=== PATIENT | male | born 1980 | race Caucasian/White ===

== ENCOUNTER 2020-05-23 06:56 | Observation (INO) | payer OTHER, SELFPAY ==
[2020-05-23] VITALS (21 sets, daily range): BP systolic 105–143; BP diastolic 65–97; PULSE 52–94; RESP 16–20; TEMP 36.6–37.1; O2SAT 95–99; BMI 28.3; BMI 27.7
--- NOTE | 2020-05-23 | IR_ITS ---
APPROVED REPORT Patient Location: Inpatient First Crusher: ANA Cisneros RT (R) PROCEDURES Left heart catheterization Left ventriculogram Selective coronary angiogram INDICATION Risk factors for coronary artery disease accompanied by unstable angina Informed consent was obtained prior to the procedure. COMPLICATIONS NONE Estimated Blood Loss: LESS THAN 10 ML TECHNIQUE One percent lidocaine used to anesthetize the right anterior aspect of the wrist. The right radial artery was accessed via the Seldinger technique. A 6 Uzbek sheath was placed in the right radial artery. 2.5 mg of verapamil, 800 mcg of nitroglycerin, 1mg Lidocaine and 5000 U Heparin were given through the arterial sheath. The trap catheter was also used to perform left heart catheterization, left ventriculogram and selective coronary angiogram. At the end of the procedure the sheath was removed good hemostasis was achieved using Traclet band, patient was transferred to the postop holding area in stable condition. ANGIOGRAPHIC RESULTS The left main artery Normal The left anterior descending artery Normal The circumflex artery Normal The right coronary artery Dominant normal The REBOLLAR ventriculogram reveals Normal 65% The left ventricular end-diastolic pressure 10 mmHg IMPRESSION Normal coronary arteries Normal ejection fraction Normal left ventricular end-diastolic pressure PLAN 1. Evaluation of noncardiac symptomatology Electronically signed by : Júnior Schmidt, 05/23/2020 11:36:58
--- NOTE | 2020-05-23 06:52 | ECG_ITS ---
APPROVED REPORT Exam: Resting ECG HR:89 bpm ECG Measurements Heart Rate 89 AXES OR 120 P 44 QRSd 106 QRS 111 QT 384 T 46 QTc 467 Conclusion Sinus rhythm with occasional premature ventricular complexes Left posterior fascicular block Abnormal ECG Electronically signed by : Kavon Browning, 05/26/2020 09:45:13
--- NOTE | 2020-05-23 07:09 | XR_ITS ---
PROCEDURE: XR CHEST PORTABLE CLINICAL HISTORY: chest pain COMPARISON: CR CXR CHEST(2 VIEWS-NOT PORTABLE) from 04/05/2017 FINDINGS: The cardiomediastinal silhouette and pulmonary vascularity are within normal limits. The lungs are clear without infiltrates, suspicious nodules, or pleural effusions. No acute bony abnormalities. IMPRESSION: No acute findings. Dictated by: Huy Francisco MD 05/23/2020 10:27 Huy Francisco MD in OV 05/23/2020 10:27
--- NOTE | 2020-05-23 07:19 | HMH.EDCP ---
ED Disposition Clinical Impression: Chest pain Qualifiers: Chest pain type: precordial pain Qualified Code(s): R07.2 - Precordial pain Disposition: Admitted as Observation Condition on Discharge: Good Referrals: Johnie Tinoco MD [Primary Care Provider] - - Critical Care Critical Care Time: No Attestation: On , the high probability of a clinically significant, sudden or life threatening deterioration of the following system(s) required my full and direct attention, intervention and personal management. The time I documented below is in addition to time spent performing reported procedures but includes the following listed in this critical care notation. Medical Decision Making - Medical Records Medical records reviewed: Yes: I reviewed the patient's medical records. - Adrián Inquiry Pt receiving controlled substance: No Vital Signs: 05/23/20 07:04 05/23/20 07:05 05/23/20 07:11 Temperature 98.7 F Temperature Source Oral Pulse Rate [Radial] 94 H 86 78 Respiratory Rate 18 Blood Pressure [Right Arm] 142/91 H 138/97 H 118/89 Blood Pressure Mean [Right Arm] 108 110 98 Blood Pressure Position [Right Arm] Sitting Sitting 02 Sat by Pulse Oximetry 98 Oxygen Delivery Method Room Air 05/23/20 07:18 05/23/20 07:27 05/23/20 07:35 Temperature Temperature Source Pulse Rate [Radial] 92 H 90 86 Respiratory Rate Blood Pressure [Right Arm] 123/89 130/80 112/82 Blood Pressure Mean [Right Arm] 100 96 92 Blood Pressure Position [Right Arm] Sitting Sitting Sitting 02 Sat by Pulse Oximetry Oxygen Delivery Method - Lab Data Lab results reviewed: Yes: I reviewed the patient's lab results. Lab Results 05/23/20 06:55: WBC 5.4, RBC 4.70, Hgb 15.2, Hct 45.6, MCV 97.1 H, MCH 32.4 H, MCHC 33.4, RDW 12.7, Plt Count 197, MPV 8.3, Neut % (Auto) 58.2, Lymph % (Auto) 28.7, Young % (Auto) 7.4, Eos % (Auto) 4.9, Baso % (Auto) 0.9, Neut # (Auto) 3.1, Lymph # (Auto) 1.5, Young # (Auto) 0.4, Eos # (Auto) 0.3, Baso # (Auto) 0.1 05/23/20 06:55: Sodium 140, Potassium 3.9, Chloride 98, Carbon Dioxide 31 H, Anion Gap 14.9, BUN 18, Creatinine 1.20, Estimated Creat Clear 127, Estimated GFR 67, Est GFR ( Amer) 81, Glucose 104 H, Calcium 9.5, Troponin I < 0.01 Result diagrams: 05/23/20 06:55 05/23/20 06:55 Orders (Tests/Meds): ED MEDICATIONS Discontinued Medications Generic Name Dose Route Start Last Admin Trade Name Freq PRN Reason Stop Dose Admin Aspirin 324 mg 05/23/20 06:57 05/23/20 06:58 Aspirin 81mg Chewable Tablet PO 05/23/20 06:58 324 mg ONCE ONE Administration Nitroglycerin 0.4 mg 05/23/20 06:57 05/23/20 06:58 Nitroglycerin 0.4mg Sl Tablet SL 05/23/20 06:58 0.4 mg ONCE ONE Administration Nitroglycerin 0.4 mg 05/23/20 07:18 05/23/20 07:20 Nitroglycerin 0.4mg Sl Tablet SL 05/23/20 07:19 0.4 mg ONCE ONE Administration Nitroglycerin 0.4 mg 05/23/20 07:29 05/23/20 07:30 Nitroglycerin 0.4mg Sl Tablet SL 05/23/20 07:30 0.4 mg ONCE ONE Administration ORDERS Category Date Time Status XR chest portable Stat Exams 05/23/20 07:09 Taken Covid-19 IgG/IgM ([facility]) Stat Lab 05/23/20 06:55 Received Troponin I Q3H Lab 05/23/20 10:15 Ordered Troponin I Q3H Lab 05/23/20 13:15 Ordered - Radiology Data #1 Image(s): Chest Image Reviewed: Yes I reviewed the patient's radiology image Preliminary Findings: Normal/NAD - ECG Data Tracing #1 Normal Sinus Rhythm: Yes Ischemic changes: non-specific ST-T wave changes - Physician Consults Physician Consulted: veronica Reason -: Admission Chest Pain HPI - General Chief Complaint: Chest Pain Stated Complaint: chest pain Time Seen by Provider: 05/23/20 07:10 Mode of Arrival: Ambulatory Source of Information: Patient, Spouse, Medical Record Limitations: No Limitations Description of Symptoms (Recalled from ER Triage Doc. by RN): to ed per pvt car with c/o chest heaviness radiati
[2020-05-23 07:23] LABS: Basophils # 0.1 K/mm3 (0-0.2); Basophils % 0.9 % (0.1-2.0); Chloride 98 mmol/L (98-107); Eosinophils # 0.3 K/mm3 (0.0-0.4); Eosinophils % 4.9 % (0.1-12.0); Hematocrit 45.6 % (42.0-52.0); Hemoglobin 15.2 g/dL (14.1-18.0); Lymphocytes # 1.5 K/mm3 (0.7-4.5); Lymphocytes % 28.7 % (10-50); Mean Corpuscular HGB Conc 33.4 g/dL (31.8-35.4); Mean Corpuscular Hemoglobin 32.4 pg (27.0-31.2); Mean Corpuscular Volume 97.1 fl (80-94); Mean Platelet Volume 8.3 fl (7.4-10.4); Monocytes # 0.4 K/mm3 (0.1-1.0); Monocytes % 7.4 % (1.7-9.3); Neutrophils # 3.1 K/mm3 (1.8-7.8); Neutrophils % 58.2 % (37.0-80.0); Platelet Count 197 K/mm3 (142-424); Red Cell Distribution Width 12.7 % (11.5-17.5); White Blood Count 5.4 K/mm3 (4.8-10.8)
[2020-05-23 07:24] LABS: Potassium 3.9 mmoL/L (3.5-5.1); Sodium 140 mmol/L (136-145)
[2020-05-23 07:27] LABS: Anion Gap 14.9 mEq/L (5-15); Blood Urea Nitrogen 18 mg/dl (9-20); Calcium 9.5 mg/dl (8.4-10.2); Carbon Dioxide 31 mmol/L (22.0-30.0); Creatinine Clearance Estimated 127 mL/min (50-200); Estimated Glomerular Filt Rate 67 ml/min (>60); GFR (African American) 81 ML/MIN (>60); Glucose 104 mg/dl (74-100)
[2020-05-23 07:39] LABS: Troponin I < 0.01 ng/ml (0.00-0.034)
--- NOTE | 2020-05-23 07:50 | PC.NURSE ---
Dr Nguyen spoke with Dr Tinoco
--- NOTE | 2020-05-23 07:52 | PC.NURSE ---
care management called regarding pt's admission
[2020-05-23 08:03] LABS: Coronavirus 19 IgG Antibody Positive (Negative); Coronavirus 19 IgM Antibody Negative (Negative)
--- NOTE | 2020-05-23 08:20 | CA_ITS ---
APPROVED REPORT EXAM: Comprehensive 2D, Doppler, and color-flow Echocardiogram Change Consultant: Caryl Fung RDCS Ht: 6 ft 6 in Wt: 245lbs BSA: 2.46 BP: 138/97 mmHg Indications: CP,SMOKER 2D Dimensions LVOT 1.89 cm (M/F) 1.5-2.5 M-Mode Dimensions RVDd 3.07 cm (0.9-2.6) LA Diam 3.03 cm (1.9-4.0) LVDd 5.21 cm (3.5-5.7) Ao Diam 3.71 cm (2.0-3.7) LVDs 4.00 cm (3.5-5.7) IVSd 0.81 cm (0.6-1.1) PWd 0.65 cm (0.6-1.1) EF (Teich) 46.20% FS 23.20% EDV (Teich) 130.10 mL ESV (Teich) 70.00 mL LV Diastology E Decel Time 233.00 (160-240 msec) E/A Ratio 1.1 MED E' 6.70 (< 7 cm/sec) E'/MED E' Ratio 8.90 (>14) LAT E' 11.30 (<10 cm/sec) E/LAT E' Ratio 5.27 (>14) Mitral Valve MV E Max Neo. 60.00 (40-130 cm/s) MV A Velocity 55.00 (40-130 cm/s) E/A Ratio 1.08 MV Decel. Time 233.00 (160-240 ms) MV PHT 68.00 ms Left Ventricle Left atrium is mildly enlarged, left ventricle is normal size, mild concentric left ventricular hypertrophy, visually estimated ejection fraction 55% with no regional wall motion abnormality, grade 1 diastolic dysfunction seen without tissue Doppler evidence of raise left atrial pressure. Right Ventricle Right atrium and right ventricle mildly not with normal contractility. Aortic Valve Uric valve is minimally thickened and fibrosed, there is no aortic stenosis or aortic insufficiency. Mitral Valve Mitral valve is grossly normal, there is no mitral stenosis, there is trace mitral regurgitation. Tricuspid Valve Tricuspid valve is grossly normal, there is trace tricuspid regurgitation, tricuspid regurgitation (inadequate for calculation of the right ventricular systolic pressure. Pulmonic Valve Pulmonic valve is poorly visualized. Great Vessels Aortic root is normal size. Pericardium No significant pericardial effusion noted. Conclusion 1. Mild biatrial enlargement, normal left ventricular size, mild concentric left ventricular hypertrophy, visually estimated ejection fraction 55% with no regional wall motion abnormality, grade 1 diastolic dysfunction seen without tissue Doppler evidence of raise left atrial pressure. 2. Trace mitral and mild tricuspid regurgitation. 3. No significant pericardial effusion noted. Electronically signed by : Hemanth Lockhart, 05/23/2020 14:54:59
--- NOTE | 2020-05-23 08:24 | PC.NURSE ---
report called to floor
--- NOTE | 2020-05-23 08:26 | HMH.PHAVTE ---
[facility] Pharmacy VTE Monitoring - Patient Demographics Admission date: 05/23/20 Report Date: 05/23/20 Time: 08:26 Allergies/Adverse Reactions: Patient Allergies No Known Allergies Allergy (Verified 07/11/19 12:22) Height: 1.98 m Weight: 111.13 kg Patient Problems: Current Active Problems Chest pain (Acute) - VTE Risk Labs: VTE Related Lab Results Hgb 15.2 g/dL (14.1-18.0) 05/23/20 06:55 Hct 45.6 % (42.0-52.0) 05/23/20 06:55 Plt Count 197 K/mm3 (142-424) 05/23/20 06:55 BUN 18 mg/dl (9-20) 05/23/20 06:55 Creatinine 1.20 mg/dl (0.66-1.25) 05/23/20 06:55 Estimated Creat Clear 127 mL/min (50-200) 05/23/20 06:55 - Prophylaxis VTE Prophylaxis Ordered?: Yes Types of VTE Prophylaxis: TEDS Knee High Location of Applied Device: Bilateral Lower Extremeties
--- NOTE | 2020-05-23 09:08 | PC.NURSE ---
pt taken to floor per wheelchair face to face report with Nilton BRODERICK
--- NOTE | 2020-05-23 09:54 | HMH.CNCARD ---
<Shaniqua Singh - Last Filed: 05/23/20 09:54> History of Present Illness Consult date: 05/23/20 Requesting physician: Johnie Tinoco Consult reason: chest pain Chief complaint: CHEST PAIN Additional Medical History:: 1. paroxysmal afib 2. anxiety History of present illness: This is a 39-year-old white gentleman who presented to the emergency department with complaints of chest pain. The patient states that his chest pain started last night around 10 PM and persisted all night and through the morning. He states that he was unable to sleep because of the chest pain and heaviness. He states that he is having a heavy sensation in the substernal aspect of his chest. It radiates down his left arm and causes numbness and coldness. It is associated with shortness of breath and diaphoresis. It is worse with exertion. The patient states that nothing was helping to improve his chest pain and heaviness. He rates this a 5 out of 10 in intensity. He states that he had never had chest pain and heaviness this bad before that persisted for this long. He states that his chest pain and heaviness did not improve until he was treated with nitroglycerin and aspirin in the emergency department. He denies any edema, fever, chills, nausea, vomiting, diarrhea, PND or orthopnea. He does report having a history of paroxysmal atrial fibrillation. He states that he was diagnosed with this after wearing a Holter monitor. He was treated with aspirin for this. He denies ever being put on a beta-gina or anything for rate control. He reports having palpitations intermittently and racing of the heart. The patient reports also having issues with anxiety. He states that his mother had an MS at the age of 54. He uses smokeless tobacco daily. [facility] History I have reviewed the patient's past medical history: Yes Medical History: Reports:: Anxiety, Arrhythmia, Gastroesophageal Reflux Disease(GERD), Palpitations Denies:: Cancer, Diabetes Mellitus Type 1, Diabetes Mellitus Type 2, MRSA *Have you ever received a pneumonia vaccine?: No *Have you received a flu vaccine this season?: No Other Surgeries: Yes: No Previous Surgery Amputation: No - *Social History Last grade of school completed: High school graduate Smoking Status: Never smoker Tobacco Type: smokeless tobacco # Packs/Day (cigarettes): 1 Alcohol Intake: current Alcohol Intake Frequency:: holidays/special occasions only Substance Use Type: denies use *Occupational Status:: employed Housing: house Household Members: spouse, children *Travel in the last 8 weeks: None - Psychiatric History Pschychiatric History:: Reports:: Anxiety Family Hx:: Cancer, Heart Attack, Hypertension Meds Home Medications Medication Instructions Recorded Confirmed Type Aspirin 81 mg PO DAILY 03/11/19 05/23/20 History Duloxetine HCl [Cymbalta] 30 mg PO BID 05/23/20 05/23/20 History Allergies Allergy/AdvReac Type Severity Reaction Status Date / Time No Known Allergies Allergy Verified 07/11/19 12:22 Exam Vital signs and Labs for Last 24 Hours: Temp Pulse Resp BP Pulse Ox 98.6 F 80 20 135/65 97 05/23/20 09:34 05/23/20 09:34 05/23/20 09:34 05/23/20 09:34 05/23/20 09:34 Laboratory Results - last 24 hr 05/23/20 06:55: WBC 5.4, RBC 4.70, Hgb 15.2, Hct 45.6, MCV 97.1 H, MCH 32.4 H, MCHC 33.4, RDW 12.7, Plt Count 197, MPV 8.3, Neut % (Auto) 58.2, Lymph % (Auto) 28.7, [facility] % (Auto) 7.4, Eos % (Auto) 4.9, Baso % (Auto) 0.9, Neut # (Auto) 3.1, Lymph # (Auto) 1.5, [facility] # (Auto) 0.4, Eos # (Auto) 0.3, Baso # (Auto) 0.1 05/23/20 06:55: Sodium 140, Potassium 3.9, Chloride 98, Carbon Dioxide 31 H, Anion Gap 14.9, BUN 18, Creatinine 1.20, Estimated Creat Clear 127, Estimated GFR 67, Est GFR ( Amer) 81, Glucose 104 H, Calcium 9.5, Troponin I < 0.01 05/23/20 06:55: SARS-CoV-2 IgG Ab (Rapid) Positive A, SARS-CoV-2 IgM Ab (Rapid) Negative I & O for Last 24 hours: Intake & Output 05/20/20 10
--- NOTE | 2020-05-23 10:41 | HMH.PHAINT ---
MEDICATION RECONCILIATION COMPLETED ON PATIENT USING EXTERNAL FILL HISTORY FROM PHARMACY AND LIST FROM [facility] OFFICE. -CLIFFORD CASTROD
[2020-05-23 10:52] LABS: Alanine Aminotransferase 23 U/L (12-78); Aspartate Amino Transferase 30 U/L (17-59); Bilirubin,Unconjugated 1.1 mg/dL (0.0-1.1)
[2020-05-23 10:53] LABS: Albumin Level 4.5 g/dl (3.5-5.0); Alkaline Phosphatase 67 U/L (38-126); Bilirubin,Indirect 1.1 mg/dL (0.0-0.9); Bilirubin,Total 1.1 mg/dl (0.2-1.3); Cholesterol 187 mg/dl (140-200); Total Protein,Serum 7.5 g/dl (6.3-8.2); Triglycerides 130 mg/dl (30-150); VLDL Cholesterol 26 mg/dL (0-40)
--- NOTE | 2020-05-23 10:59 | HMH.HP ---
*Admission Date: 05/23/20 <FahadBen bassa 05/23/20 11:08> *Chief complaint: Chest pain <Omayra Vásquez 05/23/20 11:08> *History of present illness: Mr. Garnett is a 39-year-old white male who presented to the [facility] ED with complaints of chest pain. The patient states that his chest pain started last night around 10 PM and persisted all night and through this morning. He states that he was unable to sleep because of the chest pain and heaviness. He states that he is having a heavy sensation in the substernal aspect of his chest. It radiates down his left arm and causes numbness and coldness. It is associated with shortness of breath and diaphoresis. It is worse with exertion. The patient states that nothing was helping to improve his chest pain and heaviness. He rates this a 5 out of 10 in intensity. He states that he had never had chest pain and heaviness this bad before that persisted for this long. He states that his chest pain and heaviness did not improve until he was treated with nitroglycerin and aspirin in the emergency department. He denies any edema, fever, chills, nausea, vomiting, diarrhea, PND or orthopnea. He does report having a history of paroxysmal atrial fibrillation which was diagnosed after wearing a Holter monitor. He is treated with aspirin for this. He denies any other home medications other than Cymbalta for anxiety. He reports having palpitations intermittently and racing of the heart. He states that his mother had an ID at the age of 54. He uses smokeless tobacco daily. Upon arrival to the ED, his CBC and blood chemistries were WNL. CXR showed nothing acute. EKG showed NSR with ST-T wave changes. He has been admitted to hospital service for further evaluation, Echo has been ordered, cardiology has been consulted. <Omayra Vásquez 05/23/20 11:08> [facility] History I have reviewed the patient's past medical history: Yes <Omayra Vásquez 05/23/20 11:08> Medical History: Reports:: Anxiety, Arrhythmia, Atrial Fibrillation, Gastroesophageal Reflux Disease(GERD), Palpitations Denies:: Cancer, Diabetes Mellitus Type 1, Diabetes Mellitus Type 2, MRSA <Omayra Vásquez 05/23/20 15:27> *Have you ever received a pneumonia vaccine?: No <Omayra Vásquez 05/23/20 11:08> *Have you received a flu vaccine this season?: No <Omayra Vásquez 05/23/20 11:08> Other Surgeries: Yes: No Previous Surgery <FahadBena 05/23/20 11:08> Amputation: No <Fahad05/23/20 11:08> - *Social History Last grade of school completed: High school graduate <FahadBen05/23/20 11:08> Smoking Status: Never smoker <FahadBen05/23/20 11:08> Tobacco Type: smokeless tobacco <Fahad05/23/20 11:08> # Packs/Day (cigarettes): 1 <Fahad05/23/20 11:08> Alcohol Intake: current <Fahad05/23/20 11:08> Alcohol Intake Frequency:: holidays/special occasions only <Fahad05/23/20 11:08> Substance Use Type: denies use <Fahad05/23/20 11:08> *Occupational Status:: employed <Fahad05/23/20 11:08> Housing: house <Fahad05/23/20 11:08> Household Members: spouse, children <Fahad05/23/20 11:08> *Travel in the last 8 weeks: None <Fahad05/23/20 11:08> - Psychiatric History Pschychiatric History:: Reports:: Anxiety <Fahad05/23/20 11:08> Family Hx:: Cancer, Heart Attack, Hypertension <Fahad05/23/20 11:08> Review of Systems - Constitutional Reports excessive sweating, Reports headache(s), Reports weakness <Ben Vásquez05/23/20 15:27> - Eyes Denies blurry vision, Denies change in vision <FahadBen bass05/23/20 15:27> - ENT Reports dizziness, Denies nasal congestion, Denies nasal discharge, Denies sinus pressure, Denies sore throat <Omayra Vásquez - 05/23/20 15:27> - *Cardiovascular Reports chest pain, Reports chest pain at rest, Reports chest pain with activity, Reports excessive sweating, Reports shortness of breath, Reports lightheadedness, Reports rapid, pounding, or irregul
[2020-05-23 11:06] LABS: Direct LDL Cholesterol 97.12 mg/dL (100-129)
[2020-05-23 11:16] LABS: Troponin I < 0.01 ng/ml (0.00-0.034)
[2020-05-23 13:45] LABS: Troponin I < 0.01 ng/ml (0.00-0.034)
[2020-05-23 16:33] LABS: Chol/HDL Ratio 3.7 (1-3.5); HDL Cholesterol 50 mg/dl (40-60)
--- NOTE | 2020-05-23 17:55 | PC.NURSE ---
PATIENT A&O X4, LUNGS CLEAR, PULSES EQUAL. THIS RN PROVIDED D/C INSTRUCTIONS FOR RIGHT RADIAL INJECTION MOLD TECHNICIAN PROCEDURE TO PATIENT AND SPOUSE. PATIENT AND SPOUSE VERBALIZED AN UNDERSTANDING. THIS RN INSTRUCTED PATIENT TO PHONE DR. ESTRELLA'S OFFICE TO SET UP AN APPOINTMENT 2 WEEKS FROM TODAY. PATIENT AMBULATED OFF OF FLOOR WITH SPOUSE AND [facility] EMPLOYEE. NO OTHER CONCERNS AT THIS TIME.
--- NOTE | 2020-05-30 07:11 | HMH.DCSUM ---
General - General Admission date:: 05/23/20 <Johnie Tinoco - 06/01/20 08:49> 05/23/20 <Mary Navarrete - 05/30/20 07:36> Discharge date: 05/23/20 <RosalbaMary - 05/30/20 07:36> HPI HPI: Mr. Garnett is a 39-year-old white male who presented to the [facility] ED with complaints of chest pain. The patient stated that his chest pain started the previous night around 10 PM and persisted all night and in to the morning. He stated that he was unable to sleep because of the chest pain and heaviness. He stated that he was having a heavy sensation in the substernal aspect of his chest which radiated down his left arm and caused numbness and coldness. It was associated with shortness of breath and diaphoresis and worse with exertion. The patient stated that nothing was helping to improve his chest pain and heaviness. He rated the pain a 5 out of 10 in intensity. He stated that he had never had chest pain and heaviness this bad before that persisted for this long. He stated that his chest pain and heaviness did not improve until he was treated with nitroglycerin and aspirin in the emergency department. He denied any edema, fever, chills, nausea, vomiting, diarrhea, PND or orthopnea. He did report having a history of paroxysmal atrial fibrillation which was diagnosed after wearing a Holter monitor and has been treated with aspirin for this. He denied any other home medications other than Cymbalta for anxiety. He reportd having palpitations intermittently and racing of the heart. He stated that his mother had an NE at the age of 54. He used smokeless tobacco daily. Upon arrival to the ED, his CBC and blood chemistries were WNL. CXR showed nothing acute. EKG showed NSR with ST-T wave changes. He was admitted to hospital service for further evaluation. Cardiology was consulted. <RosalbaMary - 05/30/20 07:36> Hospital Course Hospital Course: Patient was seen by cardiology and had a left heart cath on 05/23/2020 with the following impression: ANGIOGRAPHIC RESULTS The left main artery Normal The left anterior descending artery Normal The circumflex artery Normal The right coronary artery Dominant normal The REBOLLAR ventriculogram reveals Normal 65% The left ventricular end-diastolic pressure 10 mmHg IMPRESSION Normal coronary arteries Normal ejection fraction Normal left ventricular end-diastolic pressure Troponin I's were noted normal x3. Renal function was normal. After his heart cath chest pain and arm pain resolved. He was still having frequent palpitations. described his eating mant Tums in the past 2 weeks. Patient was discharged home in stable and satisfactory condition on metoprolol. He was to continue with Prevacid at home. He was to follow-up in 2 weeks and if symptoms persisted plan was for an EGD. <Mary Navarrete - 05/30/20 07:36> Objective Vital signs: Temp Pulse Resp BP Pulse Ox 97.8 F 69 16 111/78 95 05/23/20 16:00 05/23/20 16:00 05/23/20 16:00 05/23/20 16:00 05/23/20 16:00 <EarnestJohnie Jorge - 06/01/20 08:49> Temp Pulse Resp BP Pulse Ox 97.8 F 69 16 111/78 95 05/23/20 16:00 05/23/20 16:00 05/23/20 16:00 05/23/20 16:00 05/23/20 16:00 <Mary Navarrete - 05/30/20 07:36> Narrative: Exam Vital signs and Labs for Last 24 Hours: Temp Pulse Resp BP Pulse Ox 97.8 F 69 16 111/78 95 05/23/20 16:00 05/23/20 16:00 05/23/20 16:00 05/23/20 16:00 05/23/20 16:00 Laboratory Results - last 24 hr 05/23/20 06:55: WBC 5.4, RBC 4.70, Hgb 15.2, Hct 45.6, MCV 97.1 H, MCH 32.4 H, MCHC 33.4, RDW 12.7, Plt Count 197, MPV 8.3, Neut % (Auto) 58.2, Lymph % (Auto) 28.7, [place] % (Auto) 7.4, Eos % (Auto) 4.9, Baso % (Auto) 0.9, Neut # (Auto) 3.1, Lymph # (Auto) 1.5, [place] # (Auto) 0.4, Eos # (Auto) 0.3, Baso # (Auto) 0.1 05/23/20 06:55: Sodium 140, Potassium 3.9, Chloride 98, Carbon Dioxide 31 H, Anion Gap 14.9, BUN 18, Creatinine 1.20, Estimated Creat
== END 2020-05-23 17:30 | disposition home or self-care (01) ==
LOC: ER 07:54 → 2ND 08:20
PROVIDERS: Internal Medicine; Nurse Practitioner Family; Admitting Provider Family Medicine; Emergency Provider Emergency Medicine; PCP Family Medicine; Visit Provider Family Medicine
DX: I25.110 Atherosclerotic heart disease of native coronary artery with unstable angina pectoris (principal); I48.0 Paroxysmal atrial fibrillation; Z82.49 Family history of ischemic heart disease and other diseases of the circulatory system; Z79.899 Other long term (current) drug therapy
CPT/HCPCS: 36415; 71045; 80048; 80061; 80076; 84484; 85025; 86328; 93005; 93306; 93458; 99152; 99284; C1725; C1769; G0378; J1644; Q9967

== ENCOUNTER → 2020-08-27 08:58 | Outpatient (CLI) | payer OTHER, SELFPAY ==
--- NOTE | 2020-08-27 09:14 | ECG_ITS ---
APPROVED REPORT Exam: Resting ECG HR:72 bpm ECG Measurements Heart Rate 72 AXES IL 132 P 65 QRSd 120 QRS 108 QT 420 T 49 QTc 459 Conclusion Sinus rhythm with premature supraventricular complexes Right bundle branch block Abnormal ECG Electronically signed by : Kavon Browning, 08/27/2020 21:00:22
[2020-08-27 10:35] LABS: Thyroid Stimulating Hormone 2.21 uIU/mL (0.465-4.68)
== END ==
PROVIDERS: Visit Provider Internal Medicine Cardiovascular Disease
DX: R06.02 Shortness of breath (principal); R55 Syncope and collapse; I48.91 Unspecified atrial fibrillation
CPT/HCPCS: 36415; 84443; 93005

== ENCOUNTER → 2021-09-08 11:01 | Outpatient (CLI) | payer BC, SELFPAY ==
[2021-09-09 06:56] LABS: Covid-19 Nasal PCR Sendout Lex NOT DETECTED
== END ==
PROVIDERS: PCP Family Medicine; Visit Provider Nurse Practitioner
DX: Z20.822 Contact with and (suspected) exposure to COVID-19 (principal)
CPT/HCPCS: C9803; U0004; U0005

== ENCOUNTER → 2021-09-16 08:36 | Outpatient (CLI) | payer BC, SELFPAY ==
--- NOTE | 2021-09-16 08:36 | MR_ITS ---
FINAL REPORT CLINICAL HISTORY: eval for mass, lesion, FINDINGS: Multiplanar MR imaging of the brain was performed without contrast. There is no evidence of intracranial hemorrhage or mass. The ventricular size is normal. There is no evidence of shift of the midline structures. No area of restricted diffusion is identified. The posterior fossa and brainstem have an unremarkable appearance. Normal major vessel vascular flow voids are seen. There is widespread sinus mucosal thickening. There is near total opacification the left maxillary sinus. IMPRESSION: Unremarkable brain with no focal abnormality identified. Widespread sinus mucosal thickening with near total opacification of the left maxillary sinus. Reviewed, Interpreted and Dictated by Damion Ballard III, MD Transcribed by Patricia Crum Authenticated by Damion Ballard III, MD on 09/16/2021 04:01:[address] [facility]
[2021-09-16 10:47] LABS: Basophils # 0.1 K/mm3 (0-0.2); Basophils % 1.2 % (0.1-2.0); Eosinophils # 0.3 K/mm3 (0.0-0.4); Eosinophils % 5.3 % (0.1-12.0); Hematocrit 49.1 % (42.0-52.0); Hemoglobin 16.4 g/dL (14.1-18.0); Lymphocytes # 1.6 K/mm3 (0.7-4.5); Lymphocytes % 30.3 % (10-50); Mean Corpuscular HGB Conc 33.4 g/dL (31.8-35.4); Mean Corpuscular Hemoglobin 32.6 pg (27.0-31.2); Mean Corpuscular Volume 97.8 fl (80-94); Mean Platelet Volume 8.4 fl (7.4-10.4); Monocytes # 0.3 K/mm3 (0.1-1.0); Monocytes % 5.2 % (1.7-9.3); Neutrophils # 3.1 K/mm3 (1.8-7.8); Neutrophils % 57.9 % (37.0-80.0); Platelet Count 259 K/mm3 (142-424); Red Blood Count 5.02 M/mm3 (4.60-6.20); Red Cell Distribution Width 13.4 % (11.5-17.5); White Blood Count 5.4 K/mm3 (4.8-10.8)
[2021-09-16 11:09] LABS: Chloride 98 mmol/L (98-107); Potassium 4.6 mmoL/L (3.5-5.1); Sodium 136 mmol/L (136-145)
[2021-09-16 11:12] LABS: Alanine Aminotransferase 32 U/L (12-78); Albumin Level 5.1 g/dl (3.5-5.0); Albumin/Globulin Ratio 1.8 (1.1-1.8); Alkaline Phosphatase 85 U/L (38-126); Anion Gap 11.6 mEq/L (5-15); Aspartate Amino Transferase 35 U/L (17-59); Bilirubin,Total 0.9 mg/dl (0.2-1.3); Blood Urea Nitrogen 13 mg/dl (9-20); Calcium 9.8 mg/dl (8.4-10.2); Carbon Dioxide 31 mmol/L (22.0-30.0); Estimated Glomerular Filt Rate 73 ml/min (>60); GFR (African American) 89 ML/MIN (>60); Globulin 2.9 g/dL (1.3-3.2); Glucose 96 mg/dl (74-100)
[2021-09-16 12:23] LABS: Vitamin B12 499 pg/mL (239-931)
== END ==
PROVIDERS: PCP Family Medicine; Visit Provider Nurse Practitioner Family
DX: R55 Syncope and collapse (principal); I48.0 Paroxysmal atrial fibrillation; I49.9 Cardiac arrhythmia, unspecified
CPT/HCPCS: 36415; 70551; 80053; 82607; 82746; 84443; 85025; 95819

== ENCOUNTER → 2021-09-25 13:01 | Outpatient (CLI) | payer BC, SELFPAY | PROVIDERS: Visit Provider Nurse Practitioner | DX: Z20.822 Contact with and (suspected) exposure to COVID-19 (principal) | CPT/HCPCS: C9803; U0003; U0005 ==

== ENCOUNTER → 2021-10-14 20:29 | Outpatient (CLI) | payer BC, SELFPAY | LOC: SL 20:29 | PROVIDERS: PCP Physician Assistant; Visit Provider Nurse Practitioner Family | DX: R06.83 Snoring (principal); G47.30 Sleep apnea, unspecified | CPT/HCPCS: 95810 ==

== ENCOUNTER → 2021-10-17 14:47 | Outpatient (CLI) | payer BC, SELFPAY ==
[2021-10-17 16:04] LABS: Free T4 (Free Thyroxine) 0.78 ng/dl (0.78-2.19)
[2021-10-17 16:18] LABS: Thyroid Stimulating Hormone 1.58 uIU/mL (0.465-4.68)
== END ==
PROVIDERS: Visit Provider Nurse Practitioner Family
DX: R79.89 Other specified abnormal findings of blood chemistry (principal)
CPT/HCPCS: 36415; 84439; 84443

== ENCOUNTER 2021-12-15 16:09 | Emergency (ER) | payer BC, SELFPAY ==
[2021-12-15 16:35] VITALS: BP 129/80; PULSE 79; RESP 19; TEMP 37.1; O2SAT 98; BMI 33.5
--- NOTE | 2021-12-15 16:51 | HMH.EDUTC ---
[facility] Disposition Clinical Impression: Laceration Disposition: Home, Self-Care Condition on Discharge: Good Instructions: How to Care for a Laceration After Repair, Laceration Repair, DI for Laceration Repair Additional Instructions: Suture instructions: You have required stitches today. Please read the following instructions so you know how to care for them: 1. Keep wound area dry for the first 24 hours. 2 May clean gently with mild soap and water, after 48 hours to prevent crusting over suture knots. 3. You may shower if your provider gives permission but do not take a bath until the skin is healed.. 4. Never leave a wet dressing or Band-Aid on your stitches as this allows bacteria to reach the area and may cause infection. Band-aids can cause the wound to sweat and not recommended to wear for long periods of time Watch for signs of infection: Increasing redness, tenderness or warmth around the suture site Unusual swelling around the site Appearance of pus around each suture or any red streaks Fever If you develop any of the above signs or symptoms of infection, Follow up with Family Physician immediately 5. Suture removal in _10-12___days 6. Return to [facility] or follow up with family doctor for removal. This can be done by any medical provider during regular hours on Wednesday through Wednesday, by appointment. Prescriptions: Amoxicillin/Potassium Clav [Amox-Clav 875-125 mg Tablet] 1 tab PO BID #14 tab Transmission Status: Pending to [facility] Referrals: Wang Paul MD [Primary Care Provider] - As needed Time of Disposition: 17:48 Medical Decision Making - Adrián Inquiry Pt receiving controlled substance: No Adrián was queried for this patient: No Vital Signs: 12/15/21 16:35 12/15/21 17:17 Temperature 98.7 F 98.7 F Temperature Source Oral Pulse Rate 79 Pulse Rate [Right Brachial] 79 Respiratory Rate 19 19 Blood Pressure 129/80 Blood Pressure [Right Arm] 129/80 Blood Pressure Mean [Right Arm] 96 Blood Pressure Source [Right Arm] Automatic Cuff Blood Pressure Position [Right Arm] Sitting 02 Sat by Pulse Oximetry 98 Oxygen Delivery Method Room Air Orders (Tests/Meds): ED MEDICATIONS Discontinued Medications Generic Name Dose Route Start Last Admin Trade Name Freq PRN Reason Stop Dose Admin Tetanus/Reduced Diphtheria/Acell Pertussis 0.5 ml 12/15/21 16:50 05/09/22 16:55 Tet/Diphth/Pert-Adult 0.5ml Syringe IM 12/15/21 16:51 0.5 ml .ONCE ONE Administration Medical Decision Narrative: Recommended xray and patient refused States he is able to bend it and move it and just wants to get it closed up [facility] HPI - General Stated complaint: AO 12/15 1000 lac to R Hand finger Time Seen by Provider: 12/15/21 16:51 Mode of Arrival: Ambulatory Source of Information: Patient Limitations: No Limitations Description of Symptoms (Recalled from Triage Doc. by RN): PATIENT C/O LACERATION TO RIGHT MIDDLE FINGER AFTER CUTTING IT ON A SERPENTINE BELT THIS MORNING HEENT Symptoms (Recalled from RN notes): No Resp Symptoms (Recalled from RN notes): No Skin Symptoms (Recalled from RN notes): Yes MS Symptoms (Recalled from RN notes): No Functional Status (Recalled from RN notes): WNL - History of Present Illness Provider Complaint: Patient state that he was working on a car this morning when his hand slipped and he cut his right middle finger on a serpentine belt States that he wrapped it up and finshed working on the car States that he tried to put steri strips on it but it wouldnt hold it so he came in to see if it needed sutures - Related Data Home Medications Medication Instructions Recorded Confirmed aspirin 81 mg tablet,delayed 81 mg PO DAILY 09/08/21 10/27/21 release diltiazem HCl 180 mg 180 mg PO DAILY cap 09/08/21 10/27/21 capsule,extended release 24 hr duloxetine 30 mg capsule,delayed 60 mg PO BID cap 09/08/21 10/27/21 release flecainide 100 mg tablet
[2021-12-15 17:17] VITALS: BP 129/80; PULSE 79; RESP 19; TEMP 37.1; O2SAT 98
== END 2021-12-15 17:58 | disposition home or self-care (01) ==
PROVIDERS: Emergency Provider Nurse Practitioner; PCP Family Medicine
DX: S61.212A Laceration without foreign body of right middle finger without damage to nail, initial encounter (principal); Y93.H9 Activity, other involving exterior property and land maintenance, building and construction; Z23 Encounter for immunization
CPT/HCPCS: 12001; 90471; 90715; 99213; G0463

== ENCOUNTER → 2022-05-15 08:33 | Outpatient (CLI) | payer BC, SELFPAY ==
[2022-05-15 08:54] LABS: Basophils # 0.1 K/mm3 (0-0.2); Basophils % 1.4 % (0.1-2.0); Eosinophils # 0.4 K/mm3 (0.0-0.4); Eosinophils % 7.4 % (0.1-12.0); Hematocrit 40.8 % (42.0-52.0); Hemoglobin 14.2 g/dL (14.1-18.0); Lymphocytes # 1.6 K/mm3 (0.7-4.5); Lymphocytes % 28.1 % (10-50); Mean Corpuscular HGB Conc 34.8 g/dL (31.8-35.4); Mean Corpuscular Hemoglobin 33.8 pg (27.0-31.2); Mean Corpuscular Volume 97.3 fl (80-94); Mean Platelet Volume 9.2 fl (7.4-10.4); Monocytes # 0.4 K/mm3 (0.1-1.0); Monocytes % 6.2 % (1.7-9.3); Neutrophils # 3.3 K/mm3 (1.8-7.8); Neutrophils % 56.9 % (37.0-80.0); Platelet Count 218 K/mm3 (142-424); Red Blood Count 4.19 M/mm3 (4.60-6.20); Red Cell Distribution Width 13.4 % (11.5-17.5); White Blood Count 5.7 K/mm3 (4.8-10.8)
[2022-05-15 09:38] LABS: Chloride 101 mmol/L (98-107); Potassium 4.1 mmoL/L (3.5-5.1); Sodium 141 mmol/L (136-145)
[2022-05-15 09:41] LABS: Alanine Aminotransferase 27 U/L (12-78); Albumin Level 4.6 g/dl (3.5-5.0); Albumin/Globulin Ratio 1.8 (1.1-1.8); Alkaline Phosphatase 92 U/L (38-126); Anion Gap 13.1 mEq/L (5-15); Aspartate Amino Transferase 34 U/L (17-59); Bilirubin,Total 0.3 mg/dl (0.2-1.3); Calcium 8.8 mg/dl (8.4-10.2); Carbon Dioxide 31 mmol/L (22.0-30.0); Globulin 2.5 g/dL (1.3-3.2); Glucose 80 mg/dl (74-100); Total Protein,Serum 7.1 g/dl (6.3-8.2)
[2022-05-15 09:58] LABS: Free T4 (Free Thyroxine) 0.74 ng/dl (0.78-2.19)
[2022-05-15 10:13] LABS: Blood Urea Nitrogen 16 mg/dl (9-20); Estimated Glomerular Filt Rate 73 ml/min (>60); GFR (African American) 88 ML/MIN (>60)
[2022-05-15 10:45] LABS: Thyroid Stimulating Hormone 2.97 uIU/mL (0.465-4.68)
[2022-05-15 11:03] LABS: Vitamin B12 530 pg/mL (239-931)
[2022-05-22 19:09] LABS: Testosterone, Total, LC/MS 353 ng/dL (.)
== END ==
PROVIDERS: PCP Physician Assistant; Visit Provider Physician Assistant
DX: J06.9 Acute upper respiratory infection, unspecified (principal); R53.83 Other fatigue
CPT/HCPCS: 36415; 80053; 82306; 82607; 84403; 84439; 84443; 85025

== ENCOUNTER 2022-10-13 17:13 | Emergency (ER) | payer BC, SELFPAY ==
--- NOTE | 2022-10-13 17:33 | XR_ITS ---
PROCEDURE INFORMATION: Exam: XR Right Foot Exam date and time: 10/13/2022 5:40 PM Age: 42 years old Clinical indication: Pain; Foot; Right; Additional info: Fell TECHNIQUE: Imaging protocol: Radiologic exam of the right foot. Views: 3 or more views. COMPARISON: CR Ankle R 10/13/2022 5:38 PM FINDINGS: Bones/joints: Normal. Soft tissues: Normal. IMPRESSION: No acute findings.
--- NOTE | 2022-10-13 17:34 | XR_ITS ---
PROCEDURE INFORMATION: Exam: XR Right Ankle Exam date and time: 10/13/2022 5:38 PM Age: 42 years old Clinical indication: Injury or trauma; Fall; Blunt trauma; Ankle; Right; Additional info: Fell TECHNIQUE: Imaging protocol: Radiologic exam of the right ankle. Views: 3 or more views. COMPARISON: No relevant prior studies available. FINDINGS: Bones/joints: Normal. Soft tissues: Normal. IMPRESSION: No acute findings.
[2022-10-13 17:50] VITALS: BP 129/76; PULSE 64; RESP 20; TEMP 37.2; O2SAT 98; BMI 28.3
--- NOTE | 2022-10-13 18:35 | EXP.UTC ---
Discharge Plan Disposition Patient Disposition: Home, Self-Care Condition: Good Prescriptions Prescriptions: No Action flecainide 100 mg tablet 100 mg PO Q12H aspirin 81 mg tablet,delayed release (DR/EC) 81 mg PO DAILY metoprolol succinate 25 mg tablet extended release 24 hr 25 mg PO DAILY Label Comments: TAKE ONE TABLET BY MOUTH EVERY DAY (DO not crush or chew) sertraline 50 mg tablet 75 mg PO DAILY Label Comments: TAKE 1 AND 1/2 TABLET BY MOUTH EVERY DAY Referrals Follow up/Referrals: Charisse Vazquez PA [Primary Care Provider] - See instructions Mira Zhao APRN [Nurse Practitioner] - See instructions Emily Polanco DPM [Staff Physician] - See instructions (Call office for appointment) Activity Restrictions/Add. Instructions Additional Instructions/Restrictions: *RICE, Rest the extremity, Ice 15-20 minutes 3-4 times daily, Compress- wear the joe wrap as discussed as much as possible to help reduce swelling and pain, Elevate the extremity when at rest Use crutches to get around *Walking boot is for support and help control swelling, use it except in the shower. Be sure that is not to tight but not to loose either *Elevate when resting? *Ibuprofen 600-800mg every 6-8 hours as needed for pain an inflammation. If need something more can take Tylenol in between doses of Ibuprofen to help Immediately follow up with your family doctor for new or worsening of symptoms, or no noticeable improvement over the next 3-5 days Call Podiatry for appoitment Clinical Impressions Clinical Impression: Foot sprain Qualifiers: Encounter type: initial encounter Laterality: right Qualified Code(s): S93.601A - Unspecified sprain of right foot, initial encounter Stand Alone Forms Stand Alone Forms: Work/School Release Instructions Patient Instructions: How To Perform RICE (Rest, Ice, Compress, Elevate), How to Use a Walking Boot, How to Use Crutches, DI for Foot Sprain Discharge ED Provider: Senia Bustos [facility] HPI General Stated complaint: AO 10/13/22 1330 Injury right foot Mode of Arrival: Ambulatory Source of Information: Patient Limitations: No Limitations Time Seen by Provider: 10/13/22 18:35 Description of Symptoms (Recalled from Triage Doc. by RN): jumped off back of truck and hurt right foot HEENT Symptoms (Recalled from RN notes): Yes Resp Symptoms (Recalled from RN notes): No Skin Symptoms (Recalled from RN notes): No MS Symptoms (Recalled from RN notes): No Functional Status (Recalled from RN notes): n/a History of Present Illness Provider Complaint: Patient states that he jumped off the back of his flat bed truck and felt a pop in the top of his foot States that pain has continued to get worse, States that pain is shooting up into his ankle and hurts when he puts weight on it States that this evening it was more swollen so he came in Related Data Home Medications Medication Instructions Recorded Confirmed aspirin 81 mg tablet,delayed 81 mg PO DAILY . 09/08/21 10/13/22 release flecainide 100 mg tablet 100 mg PO Q12H . 09/08/21 10/13/22 metoprolol succinate 25 mg 25 mg PO DAILY . 10/13/22 10/13/22 tablet,extended release 24 hr sertraline 50 mg tablet 75 mg PO DAILY . 10/13/22 10/13/22 Allergies Allergy/AdvReac Type Severity Reaction Status Date / Time No Known Allergies Allergy Verified 10/13/22 18:07 Worker's Comp Is this a Worker's Comp case?: No [facility] Disclaimer: The information contained in this section may have been updated after the patient was seen, as this information can be updated by other users. Social History Smoking Status: Never smoker second hand exposure: No alcohol intake: current substance use type: denies use current occupational status: unemployed Travel in the last 8 weeks: None household members: spouse and children housing: house caffeine: Yes ROS
[2022-10-13 19:08] VITALS: BP 129/76; PULSE 64; RESP 20; TEMP 37.2; O2SAT 98
== END 2022-10-13 19:07 | disposition home or self-care (01) ==
PROVIDERS: Emergency Provider Nurse Practitioner; PCP Physician Assistant
DX: S93.601A Unspecified sprain of right foot, initial encounter (principal); W17.89XA Other fall from one level to another, initial encounter
CPT/HCPCS: 29515; 73610; 73630; 99212; 99214; G0463

== ENCOUNTER 2023-12-13 15:20 | Outpatient (CLI) | payer BC, SELFPAY ==
--- NOTE | 2023-12-13 15:26 | XR_ITS ---
FINAL REPORT CLINICAL HISTORY: RT ANKLE PAIN COMPARISON: None FINDINGS: RIGHT ANKLE: Three views of the right ankle were obtained. There is no acute fracture or dislocation. The joint spaces and mortise are intact. Soft tissue swelling is noted. IMPRESSION: Soft tissue swelling without acute bony abnormality. Reviewed, Interpreted and Dictated by Damion Ballard III, MD Transcribed by Pat Bourne Authenticated and [facility]
== END 2023-12-13 23:59 | disposition home or self-care (01) ==
LOC: RAD 15:22
PROVIDERS: PCP Family Medicine; Visit Provider Family Medicine
DX: M25.571 Pain in right ankle and joints of right foot (principal)
CPT/HCPCS: 73610